=== PATIENT | female | born 1995 | race African-American/Black ===

== ENCOUNTER 2020-02-03 16:36 | Emergency (ER) | payer MEDICAID ==
[~2020-02-03] VITALS: Ht 167.6 cm; Wt 91.0 kg
[2020-02-03 17:04] VITALS: BP 117/60
[2020-02-03 19:27] LABS: CLARITY URINE TURBID (CLEAR); COLOR URINE DK YELLOW (YELLOW); KETONES URINE 1+ (NEGATIVE); LEUKOCYTE ESTERASE URINE 1+ (NEGATIVE); NITRITE URINE NEGATIVE (NEGATIVE); OCCULT BLOOD URINE 2+ (NEGATIVE); PROTEIN URINE 2+ (NEGATIVE); SPECIFIC GRAVITY URINE 1.043 (1.005-1.030); UROBILINOGEN URINE 0.2 E.U./dL (0.2-1.0)
[2020-02-03] MEDS ORDERED: CEFTRIAXONE SODIUM 250 MG/VIAL IM ONE (21:15)
[2020-02-03] MEDS ORDERED: AZITHROMYCIN 500 MG TABLET PO ONE (21:15)
[2020-02-03] MEDS ORDERED: LIDOCAINE HCL 1% 20ML VIAL (Pyxis) INJ INFIL ONE (21:15)
== END 2020-02-03 21:43 | disposition home or self-care (01) ==
LOC: ER 16:36
DX: N98.9 Complication associated with artificial fertilization, unspecified (principal); N76.0 Acute vaginitis
CPT/HCPCS: 81003; 81025; 87210; 96372; 99283; J0696; J3490; Z7610